=== PATIENT | male | born 1950 | race Caucasian/White ===

== ENCOUNTER 2016-10-11 05:36 | Outpatient (CLI) | payer SELFPAY ==
[~2016-10-11] VITALS: Ht 188 cm; Wt 83.9 kg
[2016-10-11] MEDS ORDERED: MELO15TA39 PO (13:30)
[2016-10-11] MEDS ORDERED: FINA5TAB6 PO (13:30)
[2016-10-11] MEDS ORDERED: BUPR-42 PO (13:30)
[2016-10-11] MEDS ORDERED: TEST200V27 IM (13:30)
[2016-10-11] MEDS ORDERED: UBID100C27 PO (13:30)
[2016-10-11] MEDS ORDERED: TURM500C4 PO (13:30)
[2016-10-11] MEDS ORDERED: CHOL500044 PO (13:30)
[2016-10-11] MEDS ORDERED: ATOR20TA66 PO (13:30)
[2016-10-11] MEDS ORDERED: PROP80TA3 PO (13:30)
[2016-10-11] MEDS ORDERED: MAGN250T13 PO (13:30)
[2016-10-11] MEDS ORDERED: ESZO3TAB30 PO (13:30)
[2016-10-11] MEDS ORDERED: PRAS1TAB PO (13:30)
== END 2016-10-11 13:37 ==
LOC: PREOP 05:36
PROVIDERS: ATTEND Surgery Pediatric Surgery
DX: Z01.818 Encounter for other preprocedural examination (principal); Z12.11 Encounter for screening for malignant neoplasm of colon

== ENCOUNTER 2016-10-13 08:50 | Day surgery (SDC) | payer BC ==
[~2016-10-13] VITALS: Ht 188 cm; Wt 83.9 kg
[~2016-10-13 08:50] MED LIST: ATOR20TA66 PO; BUPR-42 PO; CHOL500044 PO; ESZO3TAB30 PO; FINA5TAB6 PO; MAGN250T13 PO; MELO15TA39 PO; PRAS1TAB PO; PROP80TA3 PO; TEST200V27 IM; TURM500C4 PO; UBID100C27 PO
[2016-10-13] MEDS ORDERED: NALOXONE 0.4 MG/ML 1 ML (NARCAN) VIAL IVP PRN (09:15)
[2016-10-13] MEDS ORDERED: FLUMAZENIL (ROMAZICON) 0.1 MG/ML 5 ML VIAL INJ PRN (09:15)
[2016-10-13] MEDS ORDERED: LIDOCAINE JELLY 2% (XYLOCAINE) 5 ML TUBE MM PRN (09:15)
--- NOTE | 2016-10-13 09:24 | Conscious Sedation/ASA ---
Conscious Sedation Pre-Proced Time Reviewed: 09:15 ASA Class: 3 Airway Mallampati Classification: ([place] appropriate class) I. II. III, IV Lungs Heart ASA score ASA 1: a normal healthy patient ASA 2: a patient with a mild systemic disease (mid diabetes, controlled hypertension, obesity ASA 3: a patient with a severe systemic disease that limits activity (angina , COPD, prior Myocardial infarction) ASA 4: a patient with an incapacitating disease that is a constant threat to life (CHF, renal failure) ASA 5: a moribund patient not expected to survive 24 hrs. (ruptured aneurysm) ASA 6: a declared brain patient whose organs are being harvested. For emergent operations, add the letter E after the classification Grade 2 Sedation Plan: Analgesia, Amnesia, Plan communicated to team members, Discussed options with patient/fam, Discussed risks with patient/fam Note The patient is an appropriate candidate to undergo the planned procedure, sedation, and anesthesia. The patient immediately re-assessed prior to indication. CHIP SIMON MD October 13, 2016 9:24 am
--- NOTE | 2016-10-13 09:25 | Progress Note-Pre Operative ---
Pre-Operative Progress Note H&P Reviewed The H&P was reviewed, patient examined and no changes noted. Date H&P Reviewed: October 13, 2016 Time H&P Reviewed: 09:15 Pre-Operative Diagnosis: hx polyp CHIP SIMON MD October 13, 2016 9:25 am
[2016-10-13 09:30] VITALS: BP 128/72
[2016-10-13] MEDS ORDERED: ACETAMINOPHEN 325 MG TABLET/CAPLET (TYLENOL) PO PRN (09:30)
[2016-10-13] MEDS ORDERED: NS IV 500 ML 500 ML IV PRN (09:30)
[2016-10-13] MEDS ORDERED: HYDROcodone/APAP 5 MG/325 MG (LORTAB) TAB PO PRN (09:30)
[2016-10-13] MEDS ORDERED: ONDANSETRON 4 MG/2 ML (SDV) Z0FRAN IV PRN (09:30)
[2016-10-13] MEDS ORDERED: morphine INJ 10 MG/ML 1ML (SYR OR VIAL) IV PRN (09:30)
[2016-10-13] MEDS ORDERED: MIDAZOLAM 2 MG/2 ML (VERSED) VIAL ONE ×4 (09:34)
[2016-10-13] MEDS ORDERED: fentaNYL INJECTION 100 MCG/2 ML AMP ONE ×2 (09:35)
[2016-10-13] MEDS ORDERED: LIDOCAINE JELLY 2% (XYLOCAINE) 5 ML TUBE ONE (09:35)
[2016-10-13] MEDS: fentaNYL INJECTION 100 MCG/2 ML AMP IVP PRN ×4 (09:37→10:00)
[2016-10-13] MEDS: MIDAZOLAM 2 MG/2 ML (VERSED) VIAL IVP PRN ×4 (09:40→09:55)
--- NOTE | 2016-10-13 10:12 | Progress Note-Post Operative ---
Post-Operative Progess Note Surgeon (s)/Mineral Industry Teacher (s) Surgeon CHIP SIMON MD Mineral Industry Teacher: none Pre-Operative Diagnosis hx polyp Post-Operative Diagnosis chronic stage 2 ext and int hemorrhoids, mild sigmoid diverticulosis. Procedure & Operative Findings Date of Procedure 10/13/16 Procedure Preformed/Findings Colonoscopy Anesthesia Type CS Estimated Blood Loss Estimated blood loss (mL): minimal Specimens/Packing Specimens Removed none Packing: none CHIP SIMON MD October 13, 2016 10:12 am
--- NOTE | 2016-10-13 10:14 | Discharge Inst-Surgical ---
D/C Lap Instructions-[facility] Follow Up 7 years Activity as tolerated High Fiber Diet 25g or more per day Avoid Alcohol, Caffeine, Spicy [place] and Acid foods. Drink 64 fluid oz or more of fluids per day. Symptoms to Report: Fever over 101 degree F, Nausea/Vomiting If any problems/questions: Contact your physician or go to Emergency Room CHIP SIMON MD October 13, 2016 10:14 am
[2016-10-13 10:25] VITALS: BP 97/45
--- NOTE | 2016-10-13 10:33 | OPERATIVE REPORT ---
DATE OF SERVICE: 10/13/2016 DESCRIPTION OF PROCEDURE: 10/13/2016. ATTENDING PRIMARY CARE PHYSICIAN: Dr. Nino PREOPERATIVE DIAGNOSIS: History of colon polyp. POSTOPERATIVE DIAGNOSIS: Chronic stage II external internal hemorrhoids, mild or early sigmoid diverticulosis. PROCEDURE: Colonoscopy. SURGEON: Dr. Montalvo ANESTHESIA: Conscious sedation. ESTIMATED BLOOD LOSS: Minimal. FINDINGS: Chronic stage II external and internal hemorrhoids, not actively edematous or inflamed and no bleeding. Prostate gland was palpable and appeared normal. There was mild or early sigmoid diverticulosis. The remainder of the colon was normal. There were no polyps identified. DISPOSITION: The patient tolerated the procedure well. The patient is a 66-year-old male in need of a followup colonoscopy. His last colonoscopy was in 2008 where a hyperplastic polyp was identified. He then underwent a followup colonoscopy in 2011 which was normal. Since that time, he has done well and has not had any issues with constipation or diarrhea as well as no red blood per rectum or any dark tarry stools. He was diagnosed with squamous cell cancer of the tonsils and underwent a tonsillectomy, left radical neck dissection as well as chemotherapy and radiation. He is not experiencing any symptoms of dysphagia. The patient was brought to the endoscopy suite, laid in the left lateral decubitus position. After adequate IV pain and sedative medications and conscious sedation anesthesia, a digital rectal examination was performed. Mild chronic stage II external internal hemorrhoids were identified which were not actively edematous or any signs of bleeding. Normal sphincter tone was felt and there were no palpable masses. The endoscope was then intubated to the anus and rectum gently insufflated. The endoscope was then advanced thru the valves of [place] of the rectum with no polyps or any neoplasms identified. We then proceeded through the sigmoid colon where mild or early sigmoid diverticulosis identified. There were no mucosal inflammatory change to indicate any diverticulitis. The remainder of the descending, transverse, ascending colon and cecum were normal. There were no polyps or any neoplasms identified. The endoscope was then slowly withdrawn taking a second look and suctioning of residual air with no additional findings. The patient tolerated the procedure well. We will have him continue with medical management with high fiber diet with at least 30 grams of fiber per day as well as at least 64 fluid ounces of water daily to promote soft stools on a daily basis. There were no polyps identified on this colonoscopy as well as the one in 2011 and we feel that he may wait 7-10 years for the next colonoscopy. Job ID: [id number] DocumentID: [id number] Dictated Date: 10/13/2016 10:20:13 Equipment Maint Tech Date: 10/13/2016 10:32:27 Dictated By: CHIP MONTALVO MD MTDD
[2016-10-13 10:55] VITALS: BP 120/74
[2016-10-13 11:05] VITALS: BP 120/74
== END 2016-10-13 11:05 | disposition home or self-care (01) ==
LOC: ENDO 08:50
PROVIDERS: ATTEND Surgery Pediatric Surgery
DX: K57.32 Diverticulitis of large intestine without perforation or abscess without bleeding (principal); K64.1 Second degree hemorrhoids; Z86.010 Personal history of colon polyps; Z92.21 Personal history of antineoplastic chemotherapy; Z92.3 Personal history of irradiation; Z85.89 Personal history of malignant neoplasm of other organs and systems; I10 Essential (primary) hypertension; E78.00 Pure hypercholesterolemia, unspecified; F32.9 Major depressive disorder, single episode, unspecified